=== PATIENT | female | born 1990 | race Caucasian/White ===

== ENCOUNTER 2018-08-03 21:07 | Emergency (ER) | payer BC, MEDICAID, OTHER ==
[~2018-08-03] VITALS: Ht 167.6 cm; Wt 54.5 kg
[2018-08-03] MEDS ORDERED: CLONI1TA PO (21:18)
[2018-08-03] MEDS ORDERED: GABA800T4 PO ×2 (21:18)
[2018-08-03] MEDS ORDERED: HYDR100C PO (21:18)
[2018-08-03 23:03] VITALS: BP 131/75
--- NOTE | 2018-08-04 08:37 | REP ---
Clinical: Trauma. Technique: Hough and bilateral lateral views of the nasal bones. Findings: Nasal septum is midline. Nasal bones appear intact without acute fracture or dislocation. Overlying soft tissues are grossly unremarkable. Impression: No acute nasal bone fracture identified. Electronically Signed by Live Bashir MD 08/04/2018 08:28 A
== END 2018-08-03 23:04 | disposition home or self-care (01) ==
LOC: M ED 21:07
DX: S03.8XXA Sprain of joints and ligaments of other parts of head, initial encounter (principal); W22.8XXA Striking against or struck by other objects, initial encounter; Y92.9 Unspecified place or not applicable; Y93.9 Activity, unspecified; Y99.9 Unspecified external cause status; Z72.0 Tobacco use; F43.10 Post-traumatic stress disorder, unspecified; Z79.899 Other long term (current) drug therapy

== ENCOUNTER 2019-05-11 23:15 | Emergency (ER) | payer MEDICARE, OTHER ==
[~2019-05-11] VITALS: Ht 167.6 cm; Wt 50.9 kg
[~2019-05-11 23:15] MED LIST: CLONI1TA PO; GABA800T4 PO; HYDR100C PO
[2019-05-11 23:18] VITALS: BP 126/62
[2019-05-11] MEDS ORDERED: METOCLOPRAMIDE INJ 10MG/2ML VIAL (J2765) IV ONE (23:45)
[2019-05-11] MEDS ORDERED: KETOROLAC 30 MG/ML VIAL (J1885) IV ONE (23:45)
[2019-05-11] MEDS ORDERED: diazePAM 5 MG TAB PO ONE (23:45)
[2019-05-11] MEDS ORDERED: NS 1,000 ML IV ONE (23:45)
[2019-05-12] MEDS ORDERED: ONDANSETRON 4 MG ORAL DISINTEGRATING TAB (Q0162 PER 1MG) PO ONE (01:00)
== END 2019-05-12 01:30 | disposition left against medical advice (07) ==
LOC: EDBD 23:15 → M ED 23:15
DX: R11.10 Vomiting, unspecified (principal); Z53.21 Procedure and treatment not carried out due to patient leaving prior to being seen by health care provider; F43.10 Post-traumatic stress disorder, unspecified; F17.200 Nicotine dependence, unspecified, uncomplicated; Z79.899 Other long term (current) drug therapy
CPT/HCPCS: 81001; 99283; Q0162

== ENCOUNTER 2019-05-21 06:48 | Emergency (ER) | payer OTHER ==
[~2019-05-21] VITALS: Ht 167.6 cm; Wt 52.3 kg
[2019-05-21] MEDS ORDERED: ADACEL/BOOSTRIX VACCINE (DIPHTH/PERTUSS/ACELL/TETANUS)0.5ML SYR (90715) IM ONE (07:45)
--- NOTE | 2019-05-21 08:40 | REP ---
Right wrist four views : There is no fracture or dislocation. Mineralization and joint spaces are normal. There are no calcifications or foreign bodies. Impression: Negative right wrist . Electronically Signed by Aram Isaacs MD 05/21/2019 08:31 A
[2019-05-21] MEDS ORDERED: NAPR-837 PO (08:51)
[2019-05-21 09:09] VITALS: BP 125/83
== END 2019-05-21 09:10 | disposition home or self-care (01) ==
LOC: M ED 06:48
DX: T74.11XA Adult physical abuse, confirmed, initial encounter (principal); Y07.01 Husband, perpetrator of maltreatment and neglect; Y92.89 Other specified places as the place of occurrence of the external cause; S63.501A Unspecified sprain of right wrist, initial encounter; T14.8XXA Other injury of unspecified body region, initial encounter; F19.11 Other psychoactive substance abuse, in remission; F17.290 Nicotine dependence, other tobacco product, uncomplicated; Z23 Encounter for immunization

== ENCOUNTER 2019-09-05 19:32 | Emergency (ER) | payer OTHER ==
[~2019-09-05] VITALS: Ht 167.6 cm; Wt 54.4 kg
[2019-09-05 19:32] VITALS: BP 149/93
[~2019-09-05 19:32] MED LIST changes: +NAPR-837 PO
[2019-09-05] MEDS ORDERED: BACT800T5 PO (19:58)
[2019-09-05] MEDS ORDERED: KEFL500C17 PO (19:58)
[2019-09-05] MEDS ORDERED: BACTRIM 160MG/800MG DS TAB PO ONE (20:00)
[2019-09-05] MEDS ORDERED: CEPHALEXIN 500 MG CAP PO ONE (20:00)
== END 2019-09-05 20:21 | disposition home or self-care (01) ==
LOC: M ED 19:32
DX: L03.116 Cellulitis of left lower limb (principal)